=== PATIENT | female | born 1960 | race Caucasian/White ===

== ENCOUNTER 2021-05-12 08:32 | Inpatient (IN) | payer BC ==
[2021-05-12] MEDS ORDERED: Morphine 4 MG/ML VIAL ONE (09:31)
[2021-05-12] MEDS ORDERED: Ondansetron PF 4 MG/2 ML Vial ONE (09:31)
[2021-05-12] MEDS ORDERED: Iopamidol-370 76% 500 ML 1 ML ONE (10:01)
[2021-05-12 10:17] LABS: Hemoglobin 16.6 g/dL (12.0-16.0); Mean Corpuscular HGB CONC 33.8 g/dL (32.0-36.0); Mean Corpuscular Hemoglobin 29.9 pg (27.0-31.0); Mean Corpuscular Volume 88.5 fL (78.0-98.0); Mean Platelet Volume 7.7 fL (7.4-10.4); Platelet Count 370 thou/uL (130-400); RBC Distribution Width 12.6 % (11.5-14.5); Red Blood Cell (RBC) Count 5.55 mill/uL (4.20-5.40); White Blood Cell (WBC) Count 21.9 thou/uL (4.8-10.8)
[2021-05-12 10:26] LABS: ALT (SGPT) 26 U/L (8-55); AST (SGOT) 21 U/L (5-34); Albumin 4.5 g/dL (3.4-4.8); Alkaline Phosphatase 95 U/L (40-110); Anion Gap 13 mmol/L (10-20); BUN (Urea Nitrogen) 17 mg/dL (9.8-20.1); Bilirubin, Total 0.5 mg/dL (0.2-1.2); Calc. Creatinine Clearance 0 mL/min (70-130); Calcium 10.5 mg/dL (7.8-10.44); Carbon Dioxide 31 mmol/L (23-31); Chloride 98 mmol/L (98-107); Globulin 3.7 g/dL (2.4-3.5); Glucose 152 mg/dL (80-115); Lipase 14 U/L (8-78); Potassium 4.1 mmol/L (3.5-5.1); Protein, Total 8.2 g/dL (5.8-8.1); Sodium 138 mmol/L (136-145)
[2021-05-12 10:34] LABS: Lymphocytes 5 % (21-51); MDiff Complete? YES; Monocytes 5 % (0-10); Neutrophil 90 % (42-75); Platelet Morphology Comment Appears Adequate; RBC Morphology Normal
[2021-05-12] MEDS ORDERED: MD-Gastroview 120 ML BOT ONE (10:46)
[2021-05-12] MEDS ORDERED: Ondansetron PF 4 MG/2 ML Vial IVP PRN (12:37)
[2021-05-12] MEDS ORDERED: Dextrose 5% in Water 1,000 ML IV PRN (12:37)
[2021-05-12] MEDS ORDERED: Dextrose 50% Abboject 50 ML SYRINGE SLOW IVP PRN (12:37)
[2021-05-12] MEDS ORDERED: Morphine 4 MG/ML VIAL SLOW IVP PRN (12:37)
[2021-05-12 15:58] VITALS: BMI 29.2
[2021-05-12] MEDS ORDERED: FLU VACC QS2021-22(6MOS UP)/PF 60 MCG/0.5 ML SYRINGE IM ONE (16:30)
[2021-05-12] MEDS: Lactated Ringer's 1,000 ML IV SCH ×2 (17:34)
[2021-05-12] MEDS ORDERED: Enoxaparin Sodium 40 MG/0.4 ML SYRINGE SC SCH (21:00)
[2021-05-13] MEDS: Lactated Ringer's 1,000 ML IV SCH ×2 (02:37→10:44)
[2021-05-13 07:02] LABS: #Lymphocytes 1.8 thou/uL (1.20-3.40); #Monocytes 1.6 thou/uL (0.11-0.59); #Neutrophils 15.7 thou/uL (1.40-6.50); %Basophils 0.1 % (0.0-1.0); %Eosinophils 0.1 % (0.0-10.0); %Lymphocytes 9.2 % (21.0-51.0); %Monocytes 8.1 % (0.0-10.0); %Neutrophils 82.5 % (42.0-75.0); Hemoglobin 13.9 g/dL (12.0-16.0); Mean Corpuscular HGB CONC 32.6 g/dL (32.0-36.0); Mean Corpuscular Hemoglobin 29.2 pg (27.0-31.0); Mean Corpuscular Volume 89.6 fL (78.0-98.0); Mean Platelet Volume 7.7 fL (7.4-10.4); Platelet Count 328 thou/uL (130-400); RBC Distribution Width 12.5 % (11.5-14.5); Red Blood Cell (RBC) Count 4.77 mill/uL (4.20-5.40); White Blood Cell (WBC) Count 19.1 thou/uL (4.8-10.8)
[2021-05-13 07:25] LABS: ALT (SGPT) 83 U/L (8-55); AST (SGOT) 51 U/L (5-34); Albumin 3.5 g/dL (3.4-4.8); Alkaline Phosphatase 72 U/L (40-110); Anion Gap 10 mmol/L (10-20); BUN (Urea Nitrogen) 15 mg/dL (9.8-20.1); Bilirubin, Total 0.5 mg/dL (0.2-1.2); Calc. Creatinine Clearance 80 mL/min (70-130); Calcium 8.7 mg/dL (7.8-10.44); Carbon Dioxide 30 mmol/L (23-31); Chloride 107 mmol/L (98-107); Globulin 2.7 g/dL (2.4-3.5); Glucose 127 mg/dL (80-115); Magnesium 1.9 mg/dL (1.6-2.6); Phosphorus 2.6 mg/dL (2.3-4.7); Potassium 3.5 mmol/L (3.5-5.1); Protein, Total 6.2 g/dL (5.8-8.1); Sodium 143 mmol/L (136-145)
[2021-05-13 07:46] VITALS: TEMP 97.9
[2021-05-13 15:35] VITALS: BP 126/75
== END 2021-05-13 16:06 | DRG 390 ==
LOC: ERS 08:32 → T4-B 12:37
PROVIDERS: ADMIT Surgery; ATTEND Surgery
DX: K56.51 Intestinal adhesions [bands], with partial obstruction (principal); K52.9 Noninfective gastroenteritis and colitis, unspecified; I10 Essential (primary) hypertension; J44.9 Chronic obstructive pulmonary disease, unspecified; M19.90 Unspecified osteoarthritis, unspecified site; F17.210 Nicotine dependence, cigarettes, uncomplicated; G89.29 Other chronic pain; Z88.1 Allergy status to other antibiotic agents; Z88.0 Allergy status to penicillin; Z88.2 Allergy status to sulfonamides; Z90.710 Acquired absence of both cervix and uterus; Z90.49 Acquired absence of other specified parts of digestive tract; Z88.8 Allergy status to other drugs, medicaments and biological substances
CPT/HCPCS: 36415; 74177; 74250; 80053; 83605; 83690; 83735; 83880; 84100; 84484; 85025; 93005; 94640; J1650; J2270; J2405; J7120; J7620; Q9963; Q9967

== ENCOUNTER 2021-05-18 23:08 | Inpatient (IN) | payer BC ==
[2021-05-19] MEDS ORDERED: Dextrose 5% in Water 1,000 ML IV PRN (01:58)
[2021-05-19] MEDS ORDERED: Morphine 4 MG/ML VIAL SLOW IVP PRN ×2 (01:58→02:03)
[2021-05-19] MEDS ORDERED: Dextrose 50% Abboject 50 ML SYRINGE SLOW IVP PRN (01:58)
[2021-05-19] MEDS ORDERED: hydrALAZINE 20 MG/ML VIAL SLOW IVP PRN (01:58)
[2021-05-19 02:01] VITALS: BMI 31.0
[2021-05-19] MEDS: Sodium Chloride 0.9% 1,000 ML IV SCH ×2 (04:03→14:00)
[2021-05-19 06:17] LABS: #Eosinphils 0.2 thou/uL (0.0-0.7); #Lymphocytes 1.9 thou/uL (1.20-3.40); #Neutrophils 6.9 thou/uL (1.40-6.50); %Basophils 0.4 % (0.0-1.0); %Lymphocytes 19.1 % (21.0-51.0); %Neutrophils 68.5 % (42.0-75.0); Hemoglobin 12.9 g/dL (12.0-16.0); Mean Corpuscular HGB CONC 33.5 g/dL (32.0-36.0); Mean Corpuscular Hemoglobin 29.9 pg (27.0-31.0); Mean Corpuscular Volume 89.3 fL (78.0-98.0); Mean Platelet Volume 7.4 fL (7.4-10.4); Platelet Count 303 thou/uL (130-400); RBC Distribution Width 12.3 % (11.5-14.5)
[2021-05-19 06:35] LABS: ALT (SGPT) 77 U/L (8-55); AST (SGOT) 26 U/L (5-34); Albumin 3.4 g/dL (3.4-4.8); Alkaline Phosphatase 67 U/L (40-110); Anion Gap 11 mmol/L (10-20); BUN (Urea Nitrogen) 8 mg/dL (9.8-20.1); Bilirubin, Total 0.3 mg/dL (0.2-1.2); Calc. Creatinine Clearance 85 mL/min (70-130); Calcium 8.2 mg/dL (7.8-10.44); Carbon Dioxide 29 mmol/L (23-31); Chloride 102 mmol/L (98-107); Globulin 2.5 g/dL (2.4-3.5); Glucose 100 mg/dL (80-115); Protein, Total 5.9 g/dL (5.8-8.1); Sodium 139 mmol/L (136-145)
[2021-05-19] MEDS ORDERED: Famotidine/PF 20 mg/2ml Vial SLOW IVP SCH (09:00)
[2021-05-19] MEDS ORDERED: Potassium Chloride 40 MEQ in Sodium Chloride 0.9% 250 ML 250 ML IVPB SCH (09:00)
[2021-05-19 11:12] LABS: SARS-CoV-2 PCR by NAA Not Detected (NotDetected)
[2021-05-19] MEDS ORDERED: DULoxetine 30 MG CAP PO SCH (11:45)
[2021-05-19] MEDS ORDERED: Acetaminophen 500 MG TAB PO PRN (13:06)
[2021-05-20] MEDS: Sodium Chloride 0.9% 1,000 ML IV SCH ×3 (04:06→18:43)
[2021-05-20 07:13] LABS: #Basophils 0.1 thou/uL (0.0-0.2); #Eosinphils 0.2 thou/uL (0.0-0.7); #Lymphocytes 2.4 thou/uL (1.20-3.40); #Monocytes 1.2 thou/uL (0.11-0.59); #Neutrophils 6.2 thou/uL (1.40-6.50); %Basophils 0.8 % (0.0-1.0); %Eosinophils 2.2 % (0.0-10.0); %Lymphocytes 24.1 % (21.0-51.0); %Monocytes 11.4 % (0.0-10.0); %Neutrophils 61.4 % (42.0-75.0); Hemoglobin 12.7 g/dL (12.0-16.0); Mean Corpuscular Volume 88.5 fL (78.0-98.0); Mean Platelet Volume 7.9 fL (7.4-10.4); Platelet Count 289 thou/uL (130-400); RBC Distribution Width 12.1 % (11.5-14.5); Red Blood Cell (RBC) Count 4.11 mill/uL (4.20-5.40)
[2021-05-20 07:29] LABS: Anion Gap 12 mmol/L (10-20); BUN (Urea Nitrogen) 7 mg/dL (9.8-20.1); Calc. Creatinine Clearance 93 mL/min (70-130); Carbon Dioxide 24 mmol/L (23-31); Chloride 107 mmol/L (98-107); Glucose 89 mg/dL (80-115); Magnesium 1.7 mg/dL (1.6-2.6); Potassium 3.2 mmol/L (3.5-5.1); Sodium 140 mmol/L (136-145)
[2021-05-20 07:31] LABS: Phosphorus 1.7 mg/dL (2.3-4.7)
[2021-05-20] MEDS ORDERED: Potassium Phosphate 30 MMOL, Magnesium Sulfate 2 GM in Sodium Chloride 0.9% 250 ML 250 ML IVPB SCH (09:00)
[2021-05-20] MEDS ORDERED: Magnesium Sulfate 2 GM in Sodium Chloride 0.9% 100 ML IVPB SCH (09:00)
[2021-05-20] MEDS: Montelukast Sodium 10 mg Tablet PO SCH (18:42)
[2021-05-20] MEDS: DULoxetine 30 MG CAP PO SCH (18:42)
[2021-05-20] MEDS: Pregabalin 75 MG CAP PO SCH (18:42)
[2021-05-20] MEDS: Ondansetron PF 4 MG/2 ML Vial IVP PRN (23:17)
[2021-05-21 04:52] LABS: #Eosinphils 0.2 thou/uL (0.0-0.7); #Lymphocytes 2.8 thou/uL (1.20-3.40); #Neutrophils 6.7 thou/uL (1.40-6.50); %Basophils 0.3 % (0.0-1.0); %Eosinophils 1.6 % (0.0-10.0); %Lymphocytes 26.1 % (21.0-51.0); %Monocytes 9.4 % (0.0-10.0); %Neutrophils 62.7 % (42.0-75.0); Hemoglobin 12.3 g/dL (12.0-16.0); Mean Corpuscular HGB CONC 34.6 g/dL (32.0-36.0); Mean Corpuscular Hemoglobin 30.2 pg (27.0-31.0); Mean Corpuscular Volume 87.5 fL (78.0-98.0); Mean Platelet Volume 7.8 fL (7.4-10.4); Platelet Count 315 thou/uL (130-400); Red Blood Cell (RBC) Count 4.07 mill/uL (4.20-5.40); White Blood Cell (WBC) Count 10.7 thou/uL (4.8-10.8)
[2021-05-21 05:18] LABS: Anion Gap 7 mmol/L (10-20); BUN (Urea Nitrogen) 4 mg/dL (9.8-20.1); Calc. Creatinine Clearance 100 mL/min (70-130); Carbon Dioxide 30 mmol/L (23-31); Chloride 108 mmol/L (98-107); Glucose 89 mg/dL (80-115); Magnesium 2.2 mg/dL (1.6-2.6); Phosphorus 2.2 mg/dL (2.3-4.7); Potassium 3.1 mmol/L (3.5-5.1); Sodium 142 mmol/L (136-145)
[2021-05-21] MEDS ORDERED: Potassium Phosphate 30 MMOL in Sodium Chloride 0.9% 250 ML 250 ML IVPB SCH (08:45)
[2021-05-21] MEDS: Losartan 25 MG TAB PO SCH (08:52)
[2021-05-21] MEDS: Pregabalin 75 MG CAP PO SCH (08:52)
[2021-05-21] MEDS: Montelukast Sodium 10 mg Tablet PO SCH (08:52)
[2021-05-21] MEDS: DULoxetine 30 MG CAP PO SCH (08:52)
[2021-05-21] MEDS ORDERED: Fentanyl 100 MCG/2 ML VIAL ONE ×2 (12:54→16:37)
[2021-05-21] MEDS ORDERED: HYDROmorphone 2 MG/ML VIAL ONE ×2 (12:54→16:37)
[2021-05-21] MEDS ORDERED: Midazolam HCl 2 mg/2 ml Vial ONE (12:54)
[2021-05-21] MEDS ORDERED: ceFAZolin 2 GM/DEX 5% 100 ML BAG ONE (13:11)
[2021-05-21] MEDS ORDERED: Dexamethasone 20 MG/5 ML VIAL ONE (13:16)
[2021-05-21] MEDS ORDERED: PHENYLEPHRINE-NS 100 MCG/ML 10 ML SYRINGE ONE (13:16)
[2021-05-21] MEDS ORDERED: Glycopyrrolate 0.2 MG/ML 5 ML SYRINGE ONE (13:16)
[2021-05-21] MEDS ORDERED: Ondansetron PF 4 MG/2 ML Vial ONE (13:16)
[2021-05-21] MEDS ORDERED: ePHEDrine 50 MG/ML VIAL ONE (13:16)
[2021-05-21] MEDS ORDERED: Ketorolac Tromethamine 30 MG/ML VIAL ONE (13:16)
[2021-05-21] MEDS ORDERED: Rocuronium Bromide 10 MG/ML (10ML VIAL) ONE (13:16)
[2021-05-21] MEDS ORDERED: Lidocaine 1% PF 5 ML VIAL ONE (13:16)
[2021-05-21] MEDS ORDERED: PROPOFOL 200 MG/20 ML VIAL ONE (13:16)
[2021-05-21] MEDS ORDERED: Promethazine HCl 25 MG/ML VIAL IVPB PRN (15:42)
[2021-05-21] MEDS ORDERED: Promethazine HCl 25 MG/ML VIAL IM PRN ×2 (15:42→16:25)
[2021-05-21] MEDS ORDERED: HYDROmorphone 2 MG/ML VIAL SLOW IVP PRN (15:42)
[2021-05-21] MEDS ORDERED: Ondansetron HCl/PF 4 MG/2 ML Vial IVP PRN (15:42)
[2021-05-21] MEDS ORDERED: Sodium Chloride 0.9% 10 ML ONE (16:11)
[2021-05-21] MEDS ORDERED: Naloxone HCl 0.4 mg/ml Vial IV PRN (16:25)
[2021-05-21] MEDS ORDERED: diphenhydrAMINE 50 MG/ML VIAL IVP PRN (16:25)
[2021-05-21] MEDS ORDERED: diphenhydrAMINE 50 MG/ML VIAL IM PRN (16:25)
[2021-05-21] MEDS ORDERED: diphenhydrAMINE 25 MG CAP PO PRN (16:25)
[2021-05-21] MEDS ORDERED: Communication Order-Pharmacy FS SCH (16:30)
[2021-05-21] MEDS ORDERED: HYDROmorphone 0.5 MG/0.5 ML SYRINGE ONE ×2 (16:38→16:49)
[2021-05-21] MEDS ORDERED: D5 1/2 NS w/20 mEq KCL 1,000 ML ONE (16:38)
[2021-05-21] MEDS ORDERED: Sodium Chloride For Inhalation 0.9% 3 ML NEB ONE (16:48)
[2021-05-21] MEDS: D5 1/2 NS w/20 mEq KCL 1,000 ML IV SCH (18:43)
[2021-05-21] MEDS: Ketorolac Tromethamine 30 MG/ML VIAL IVP SCH ×2 (18:43→23:50)
[2021-05-22] MEDS: D5 1/2 NS w/20 mEq KCL 1,000 ML IV SCH ×2 (02:27→13:38)
[2021-05-22 04:49] LABS: Hemoglobin 14.4 g/dL (12.0-16.0); Mean Corpuscular HGB CONC 32.9 g/dL (32.0-36.0); Mean Corpuscular Hemoglobin 29.3 pg (27.0-31.0); Mean Corpuscular Volume 89.1 fL (78.0-98.0); Mean Platelet Volume 7.9 fL (7.4-10.4); Platelet Count 346 thou/uL (130-400); RBC Distribution Width 12.4 % (11.5-14.5); Red Blood Cell (RBC) Count 4.92 mill/uL (4.20-5.40)
[2021-05-22] MEDS: Ketorolac Tromethamine 30 MG/ML VIAL IVP SCH ×3 (05:34→18:10)
[2021-05-22 06:06] LABS: Anion Gap 15 mmol/L (10-20); BUN (Urea Nitrogen) 10 mg/dL (9.8-20.1); Calc. Creatinine Clearance 54 mL/min (70-130); Calcium 7.5 mg/dL (7.8-10.44); Carbon Dioxide 21 mmol/L (23-31); Chloride 107 mmol/L (98-107); Glucose 205 mg/dL (80-115); Magnesium 1.8 mg/dL (1.6-2.6); Phosphorus 2.9 mg/dL (2.3-4.7); Sodium 139 mmol/L (136-145)
[2021-05-22 06:19] LABS: Band 47 % (5-11); Lymphocytes 6 % (21-51); MDiff Complete? YES; Metamyelocyte 2 % (0-0); Monocytes 8 % (0-10); Neutrophil 35 % (42-75); Reactive Lymphocytes 2 % (0-10); Reflex for Review?? YES
[2021-05-22] MEDS ORDERED: Magnesium Sulfate 3 GM in Sodium Chloride 0.9% 100 ML IV SCH (08:00)
[2021-05-22] MEDS: Enoxaparin Sodium 40 MG/0.4 ML SYRINGE SC SCH (09:41)
[2021-05-22] MEDS: Pregabalin 75 MG CAP PO SCH (09:42)
[2021-05-22] MEDS: Montelukast Sodium 10 mg Tablet PO SCH (09:42)
[2021-05-22] MEDS: DULoxetine 30 MG CAP PO SCH (09:42)
[2021-05-22] MEDS: Losartan 25 MG TAB PO SCH (09:42)
[2021-05-22] MEDS ORDERED: Lactated Ringer's 1,000 ML IV SCH (12:00)
[2021-05-22] MEDS: HYDROmorphone 10 mg/100 ml CADD IVPB PRN (14:28)
[2021-05-22 19:10] LABS: Anion Gap 16 mmol/L (10-20); BUN (Urea Nitrogen) 15 mg/dL (9.8-20.1); Calc. Creatinine Clearance 61 mL/min (70-130); Calcium 7.8 mg/dL (7.8-10.44); Carbon Dioxide 17 mmol/L (23-31); Chloride 110 mmol/L (98-107); Glucose 134 mg/dL (80-115); Potassium 4.7 mmol/L (3.5-5.1); Sodium 138 mmol/L (136-145)
[2021-05-23] MEDS: HYDROmorphone 10 mg/100 ml CADD IVPB PRN (02:12)
[2021-05-23] MEDS: D5 1/2 NS w/20 mEq KCL 1,000 ML IV SCH ×3 (02:12→18:18)
[2021-05-23 05:31] LABS: Anion Gap 10 mmol/L (10-20); BUN (Urea Nitrogen) 17 mg/dL (9.8-20.1); Calc. Creatinine Clearance 57 mL/min (70-130); Calcium 8.1 mg/dL (7.8-10.44); Carbon Dioxide 21 mmol/L (23-31); Chloride 109 mmol/L (98-107); Glucose 139 mg/dL (80-115); Magnesium 2.6 mg/dL (1.6-2.6); Phosphorus 1.3 mg/dL (2.3-4.7); Potassium 4.2 mmol/L (3.5-5.1); Sodium 136 mmol/L (136-145)
[2021-05-23 06:57] LABS: Band 33 % (5-11); Hemoglobin 12.4 g/dL (12.0-16.0); Lymphocytes 5 % (21-51); MDiff Complete? YES; Mean Corpuscular HGB CONC 32.8 g/dL (32.0-36.0); Mean Corpuscular Hemoglobin 29.3 pg (27.0-31.0); Mean Corpuscular Volume 89.2 fL (78.0-98.0); Mean Platelet Volume 7.9 fL (7.4-10.4); Monocytes 3 % (0-10); Neutrophil 59 % (42-75); Platelet Count 342 thou/uL (130-400); RBC Distribution Width 12.3 % (11.5-14.5); Red Blood Cell (RBC) Count 4.25 mill/uL (4.20-5.40); White Blood Cell (WBC) Count 24.5 thou/uL (4.8-10.8)
[2021-05-23] MEDS: Montelukast Sodium 10 mg Tablet PO SCH (08:46)
[2021-05-23] MEDS: DULoxetine 30 MG CAP PO SCH (08:46)
[2021-05-23] MEDS: Enoxaparin Sodium 40 MG/0.4 ML SYRINGE SC SCH (08:46)
[2021-05-23] MEDS: Pregabalin 75 MG CAP PO SCH (08:54)
[2021-05-23] MEDS: Pantoprazole 40 MG VIAL IVP SCH (10:53)
[2021-05-23] MEDS: Ondansetron PF 4 MG/2 ML Vial IVP PRN (10:57)
[2021-05-23] MEDS ORDERED: Lactated Ringer's 500 ML IV SCH (11:30)
[2021-05-24] MEDS: D5 1/2 NS w/20 mEq KCL 1,000 ML IV SCH ×2 (04:30→14:38)
[2021-05-24] MEDS: Ondansetron PF 4 MG/2 ML Vial IVP PRN ×2 (06:40→15:52)
[2021-05-24 07:45] LABS: Anion Gap 9 mmol/L (10-20); BUN (Urea Nitrogen) 15 mg/dL (9.8-20.1); Calc. Creatinine Clearance 76 mL/min (70-130); Calcium 7.7 mg/dL (7.8-10.44); Carbon Dioxide 22 mmol/L (23-31); Chloride 108 mmol/L (98-107); Glucose 97 mg/dL (80-115); Magnesium 2.2 mg/dL (1.6-2.6); Phosphorus 2.2 mg/dL (2.3-4.7); Potassium 4.4 mmol/L (3.5-5.1); Sodium 135 mmol/L (136-145)
[2021-05-24 08:42] LABS: Hemoglobin 12.7 g/dL (12.0-16.0); Mean Corpuscular HGB CONC 31.2 g/dL (32.0-36.0); Mean Corpuscular Hemoglobin 28.7 pg (27.0-31.0); Mean Platelet Volume 8.3 fL (7.4-10.4); Platelet Count 239 thou/uL (130-400); RBC Distribution Width 12.3 % (11.5-14.5); Red Blood Cell (RBC) Count 4.41 mill/uL (4.20-5.40); White Blood Cell (WBC) Count 21.4 thou/uL (4.8-10.8)
[2021-05-24] MEDS: Pregabalin 75 MG CAP PO SCH (09:08)
[2021-05-24] MEDS: DULoxetine 30 MG CAP PO SCH (09:08)
[2021-05-24] MEDS: Montelukast Sodium 10 mg Tablet PO SCH (09:08)
[2021-05-24 09:13] LABS: Band 15 % (5-11); Lymphocytes 8 % (21-51); MDiff Complete? YES; Monocytes 4 % (0-10); Neutrophil 73 % (42-75); Platelet Morphology Comment Appears Adequate; Polychromasia SLIGHT = 2-3 cells (100X) (0-2/hpf)
[2021-05-24] MEDS: Pantoprazole 40 MG VIAL IVP SCH (09:17)
[2021-05-24] MEDS: Enoxaparin Sodium 40 MG/0.4 ML SYRINGE SC SCH (09:17)
[2021-05-24] MEDS: HYDROmorphone 10 mg/100 ml CADD IVPB PRN (11:51)
[2021-05-24] MEDS ORDERED: Scopolamine 1.5 mg/72 hour Patch TD SCH (12:00)
[2021-05-24] MEDS ORDERED: traMADol HCl 50 MG TAB PO PRN (16:41)
[2021-05-24] MEDS ORDERED: Furosemide 20 MG/2 ML VIAL SLOW IVP SCH (17:15)
[2021-05-24] MEDS ORDERED: Acetaminophen 650 MG/20.3 ML UDCUP PO SCH (17:30)
[2021-05-24] MEDS: traMADol HCl 50 MG TAB PO SCH ×2 (17:44→22:58)
[2021-05-25] MEDS: traMADol HCl 50 MG TAB PO SCH ×4 (05:05→23:14)
[2021-05-25 05:32] LABS: Hemoglobin 10.6 g/dL (12.0-16.0); Mean Corpuscular HGB CONC 32.8 g/dL (32.0-36.0); Mean Corpuscular Hemoglobin 29.5 pg (27.0-31.0); Mean Corpuscular Volume 90.1 fL (78.0-98.0); Mean Platelet Volume 7.6 fL (7.4-10.4); Platelet Count 334 thou/uL (130-400); RBC Distribution Width 12.1 % (11.5-14.5); Red Blood Cell (RBC) Count 3.58 mill/uL (4.20-5.40)
[2021-05-25 05:36] LABS: Anion Gap 11 mmol/L (10-20); BUN (Urea Nitrogen) 14 mg/dL (9.8-20.1); Calc. Creatinine Clearance 78 mL/min (70-130); Calcium 8.1 mg/dL (7.8-10.44); Carbon Dioxide 25 mmol/L (23-31); Chloride 105 mmol/L (98-107); Glucose 100 mg/dL (80-115); Magnesium 1.9 mg/dL (1.6-2.6); Phosphorus 2.7 mg/dL (2.3-4.7); Sodium 137 mmol/L (136-145)
[2021-05-25 06:17] LABS: Band 16 % (5-11); Eosinophils 2 % (0-10); Lymphocytes 8 % (21-51); MDiff Complete? YES; Monocytes 10 % (0-10); Neutrophil 62 % (42-75)
[2021-05-25] MEDS: Enoxaparin Sodium 40 MG/0.4 ML SYRINGE SC SCH (08:30)
[2021-05-25] MEDS: DULoxetine 30 MG CAP PO SCH (08:30)
[2021-05-25] MEDS: Pregabalin 75 MG CAP PO SCH (08:30)
[2021-05-25] MEDS: Montelukast Sodium 10 mg Tablet PO SCH (08:30)
[2021-05-25] MEDS ORDERED: Morphine 4 MG/ML VIAL ONE (11:16)
[2021-05-25] MEDS ORDERED: Morphine 4 MG/ML VIAL SLOW IVP SCH (11:30)
[2021-05-25] MEDS: Pantoprazole 40 MG VIAL IVP SCH (11:59)
[2021-05-25] MEDS: Ondansetron PF 4 MG/2 ML Vial IVP PRN (13:43)
[2021-05-25] MEDS: metroNIDAZOLE 500 MG TAB PO SCH ×2 (17:31→21:45)
[2021-05-26] MEDS: traMADol HCl 50 MG TAB PO SCH (05:40)
[2021-05-26 06:19] LABS: Hemoglobin 10.8 g/dL (12.0-16.0); Mean Corpuscular HGB CONC 32.7 g/dL (32.0-36.0); Mean Corpuscular Hemoglobin 29.4 pg (27.0-31.0); Mean Corpuscular Volume 89.9 fL (78.0-98.0); Mean Platelet Volume 7.8 fL (7.4-10.4); Platelet Count 370 thou/uL (130-400); RBC Distribution Width 12.3 % (11.5-14.5); Red Blood Cell (RBC) Count 3.66 mill/uL (4.20-5.40); White Blood Cell (WBC) Count 15.7 thou/uL (4.8-10.8)
[2021-05-26 07:04] LABS: Band 10 % (5-11); Eosinophils 1 % (0-10); Lymphocytes 8 % (21-51); MDiff Complete? YES; Monocytes 7 % (0-10); Myelocyte 1 % (0-0); Neutrophil 73 % (42-75)
[2021-05-26] MEDS ORDERED: Losartan 25 MG TAB PO SCH (09:00)
[2021-05-26] MEDS ORDERED: Saccharomyces boulardii 250 MG CAP PO SCH (09:00)
[2021-05-26] MEDS: DULoxetine 30 MG CAP PO SCH (09:03)
[2021-05-26] MEDS: Pregabalin 75 MG CAP PO SCH (09:03)
[2021-05-26] MEDS: metroNIDAZOLE 500 MG TAB PO SCH (09:03)
[2021-05-26] MEDS: Enoxaparin Sodium 40 MG/0.4 ML SYRINGE SC SCH (09:04)
[2021-05-26] MEDS: Montelukast Sodium 10 mg Tablet PO SCH (09:04)
[2021-05-26] MEDS: Pantoprazole 40 MG VIAL IVP SCH (09:31)
[2021-05-26 10:55] VITALS: BP 156/87; TEMP 97.7
[2021-05-26] MEDS ORDERED: [UNRECOGNIZED DRUG - OTHER] PO PRN (11:06)
[2021-05-26] MEDS ORDERED: Acetaminophen/Codeine 30-300mg Tablet PO PRN (11:08)
[2021-05-26] MEDS ORDERED: ACETAMINOPHEN 325 MG PO PRN (11:15)
== END 2021-05-26 14:30 | disposition home or self-care (01) | DRG 330 ==
LOC: SURG B 05-19 01:33
PROVIDERS: ADMIT Surgery; ATTEND Surgery
PROC: 0DBB0ZZ Excision of Ileum, Open Approach (ICD-10-PCS; principal; 2021-05-21)
PROC: 0DNW0ZZ Release Peritoneum, Open Approach (ICD-10-PCS; 2021-05-21)
PROC: 0D1B0ZH Bypass Ileum to Cecum, Open Approach (ICD-10-PCS; 2021-05-21)
PROC: 0D9670Z Drainage of Stomach with Drainage Device, Via Natural or Artificial Opening (ICD-10-PCS; 2021-05-21)
DX: K56.51 Intestinal adhesions [bands], with partial obstruction (principal); N18.4 Chronic kidney disease, stage 4 (severe); N17.9 Acute kidney failure, unspecified; Z20.822 Contact with and (suspected) exposure to COVID-19; M06.9 Rheumatoid arthritis, unspecified; E87.6 Hypokalemia; F17.210 Nicotine dependence, cigarettes, uncomplicated; I12.9 Hypertensive chronic kidney disease with stage 1 through stage 4 chronic kidney disease, or unspecified chronic kidney disease; E83.39 Other disorders of phosphorus metabolism; K59.00 Constipation, unspecified; D72.829 Elevated white blood cell count, unspecified; Z90.49 Acquired absence of other specified parts of digestive tract; Z90.710 Acquired absence of both cervix and uterus; Z98.890 Other specified postprocedural states; Z88.0 Allergy status to penicillin; Z88.2 Allergy status to sulfonamides; Z88.8 Allergy status to other drugs, medicaments and biological substances; Z79.899 Other long term (current) drug therapy
CPT/HCPCS: 36415; 36416; 71045; 74018; 74019; 74250; 80048; 80053; 83690; 83735; 84100; 85007; 85025; 85027; 85060; 88307; C1776; C9113; J1100; J1170; J1650; J1885; J1940; J2250; J2270; J2405; J2550; J2704; J3010; J3475; J3480; J3490; J7030; J7050; J7120; J7620; P9045; S0028; U0003; U0005

== ENCOUNTER 2021-05-30 14:13 | Inpatient (IN) | payer BC ==
[~2021-05-30 14:13] MED LIST: Iopamidol-370 76% 500 ML 1 ML ONE
[2021-05-30] MEDS ORDERED: Morphine 4 MG/ML VIAL ONE (16:40)
[2021-05-30] MEDS ORDERED: Ondansetron PF 4 MG/2 ML Vial ONE (16:49)
[2021-05-30] MEDS ORDERED: Promethazine HCl 25 MG/ML VIAL ONE (16:59)
[2021-05-30 17:14] LABS: #Eosinphils 0.1 thou/uL (0.0-0.7); #Lymphocytes 1.3 thou/uL (1.20-3.40); #Monocytes 1.6 thou/uL (0.11-0.59); #Neutrophils 12.9 thou/uL (1.40-6.50); %Basophils 0.2 % (0.0-1.0); %Eosinophils 0.6 % (0.0-10.0); %Lymphocytes 8.4 % (21.0-51.0); %Monocytes 9.9 % (0.0-10.0); %Neutrophils 80.9 % (42.0-75.0); Hemoglobin 11.4 g/dL (12.0-16.0); Mean Corpuscular HGB CONC 33.6 g/dL (32.0-36.0); Mean Corpuscular Hemoglobin 29.7 pg (27.0-31.0); Mean Corpuscular Volume 88.2 fL (78.0-98.0); Mean Platelet Volume 7.1 fL (7.4-10.4); Platelet Count 555 thou/uL (130-400); RBC Distribution Width 12.4 % (11.5-14.5); Red Blood Cell (RBC) Count 3.85 mill/uL (4.20-5.40)
[2021-05-30 17:36] LABS: ALT (SGPT) 12 U/L (8-55); AST (SGOT) 15 U/L (5-34); Albumin 2.7 g/dL (3.4-4.8); Alkaline Phosphatase 71 U/L (40-110); Anion Gap 11 mmol/L (10-20); BUN (Urea Nitrogen) 7 mg/dL (9.8-20.1); Bilirubin, Total 0.3 mg/dL (0.2-1.2); CK (CPK) 20 U/L (29-168); Calc. Creatinine Clearance 0 mL/min (70-130); Calcium 8.4 mg/dL (7.8-10.44); Carbon Dioxide 32 mmol/L (23-31); Chloride 100 mmol/L (98-107); Globulin 3.1 g/dL (2.4-3.5); Glucose 105 mg/dL (80-115); Lipase 7 U/L (8-78); Protein, Total 5.8 g/dL (5.8-8.1); Sodium 140 mmol/L (136-145)
[2021-05-30 17:48] LABS: Potassium 2.9 mmol/L (3.5-5.1)
[2021-05-30] MEDS ORDERED: Vancomycin 1 GM/200 ML BAG ONE (18:03)
[2021-05-30 18:11] LABS: Bilirubin Negative (Negative); Blood, Urine Negative (Negative); Clarity Clear (Clear); Glucose, Urine (Dipstick) Normal (Negative); Ketone, Urine Negative (Negative); Leukocyte Negative Leu/uL (Negative); Nitrite Negative (Negative); Protein, Urine (Dipstick) Negative (Neg-Trace); Specific Gravity, Urine 1.014 (1.002-1.036); Urobilinogen Normal mg/dL (Less than 2); pH, Urine 6.5 (5.0-9.0)
[2021-05-30] MEDS ORDERED: MEROPENEM 1 GM/50 ML 1 GM in Premix Bag 1 BAG IVPB SCH (18:15)
[2021-05-30] MEDS ORDERED: Dextrose 5% in Water 1,000 ML IV PRN (18:57)
[2021-05-30] MEDS ORDERED: Morphine 4 MG/ML VIAL SLOW IVP PRN (18:57)
[2021-05-30] MEDS ORDERED: Ondansetron PF 4 MG/2 ML Vial IVP PRN (18:57)
[2021-05-30] MEDS ORDERED: Dextrose 50% Abboject 50 ML SYRINGE SLOW IVP PRN (18:57)
[2021-05-30] MEDS ORDERED: Meropenem 1 GM in Sodium Chloride 0.9% 100 ML IVPB SCH ×2 (19:00→22:00)
[2021-05-30] MEDS ORDERED: Sodium Chloride 0.9% 1,000 ML IV SCH (19:30)
[2021-05-30 20:09] LABS: Anion Gap 12 mmol/L (10-20); BUN (Urea Nitrogen) 5 mg/dL (9.8-20.1); Calc. Creatinine Clearance 0 mL/min (70-130); Calcium 8.1 mg/dL (7.8-10.44); Carbon Dioxide 31 mmol/L (23-31); Chloride 103 mmol/L (98-107); Glucose 120 mg/dL (80-115); Sodium 143 mmol/L (136-145)
[2021-05-30 20:17] LABS: Potassium 2.9 mmol/L (3.5-5.1)
[2021-05-30] MEDS ORDERED: Famotidine/PF 20 mg/2ml Vial SLOW IVP SCH (21:00)
[2021-05-30] MEDS ORDERED: fentaNYL Citrate/PF 2,000 MCG in Sodium Chloride 0.9% 60 ML IV PRN (21:28)
[2021-05-30] MEDS ORDERED: Naloxone HCl 0.4 mg/ml Vial IV PRN (21:28)
[2021-05-30] MEDS ORDERED: diphenhydrAMINE 50 MG/ML VIAL IM PRN (21:28)
[2021-05-30] MEDS ORDERED: Promethazine HCl 25 MG/ML VIAL IM PRN (21:28)
[2021-05-30] MEDS ORDERED: diphenhydrAMINE 25 MG CAP PO PRN (21:28)
[2021-05-30] MEDS ORDERED: diphenhydrAMINE 50 MG/ML VIAL IVP PRN (21:28)
[2021-05-30] MEDS ORDERED: Communication Order-Pharmacy FS SCH (21:30)
[2021-05-30] MEDS ORDERED: Potassium Phosphate 30 MMOL in Sodium Chloride 0.9% 250 ML 250 ML IVPB SCH (21:30)
[2021-05-30 22:27] VITALS: BMI 30.9
[2021-05-31] MEDS: 1/2 NS w/KCL 20 mEq 1,000 ML IV SCH ×3 (02:11→07:55)
[2021-05-31] MEDS: Meropenem 1 GM in Sodium Chloride 0.9% 100 ML IVPB SCH ×3 (03:58→20:48)
[2021-05-31] MEDS ORDERED: 1/2 NS w/KCL 20 mEq 1,000 ML IV SCH (07:42)
[2021-05-31] MEDS: Vancomycin HCl 750 MG in Sodium Chloride 0.9% 250 ML 250 ML IVPB SCH ×2 (07:58→17:18)
[2021-05-31] MEDS: Pregabalin 75 MG CAP PO SCH (08:23)
[2021-05-31] MEDS: Losartan 25 MG TAB PO SCH (08:24)
[2021-05-31] MEDS: Scopolamine 1.5 mg/72 hour Patch TD SCH (08:25)
[2021-05-31] MEDS: Enoxaparin Sodium 40 MG/0.4 ML SYRINGE SC SCH (08:25)
[2021-05-31] MEDS: Potassium Chloride 20 MEQ in Premix Bag 1 BAG IVPB SCH ×2 (08:26→09:33)
[2021-05-31 08:38] LABS: Hemoglobin 11.3 g/dL (12.0-16.0); Mean Corpuscular HGB CONC 33.1 g/dL (32.0-36.0); Mean Corpuscular Hemoglobin 29.4 pg (27.0-31.0); Mean Platelet Volume 7.2 fL (7.4-10.4); Platelet Count 549 thou/uL (130-400); RBC Distribution Width 12.5 % (11.5-14.5); Red Blood Cell (RBC) Count 3.84 mill/uL (4.20-5.40); White Blood Cell (WBC) Count 15.9 thou/uL (4.8-10.8)
[2021-05-31 08:54] LABS: Anion Gap 16 mmol/L (10-20); BUN (Urea Nitrogen) 6 mg/dL (9.8-20.1); Calc. Creatinine Clearance 91 mL/min (70-130); Calcium 8.2 mg/dL (7.8-10.44); Carbon Dioxide 28 mmol/L (23-31); Chloride 105 mmol/L (98-107); Glucose 98 mg/dL (80-115); Lactic Acid 1.1 mmol/L (0.5-2.2); Magnesium 2.1 mg/dL (1.6-2.6); Potassium 3.7 mmol/L (3.5-5.1); Sodium 145 mmol/L (136-145)
[2021-05-31 08:58] LABS: Anion Gap 16 mmol/L (10-20); BUN (Urea Nitrogen) 6 mg/dL (9.8-20.1); Calc. Creatinine Clearance 94 mL/min (70-130); Calcium 8.2 mg/dL (7.8-10.44); Carbon Dioxide 27 mmol/L (23-31); Chloride 105 mmol/L (98-107); Glucose 98 mg/dL (80-115); Magnesium 2.1 mg/dL (1.6-2.6); Phosphorus 3.2 mg/dL (2.3-4.7); Potassium 3.5 mmol/L (3.5-5.1); Sodium 144 mmol/L (136-145)
[2021-05-31 09:12] LABS: Phosphorus 3.2 mg/dL (2.3-4.7)
[2021-05-31 09:18] LABS: Band 9 % (5-11); Eosinophils 1 % (0-10); Lymphocytes 7 % (21-51); MDiff Complete? YES; Monocytes 7 % (0-10); Myelocyte 2 % (0-0); Neutrophil 74 % (42-75); Platelet Morphology Comment Appears Increased
[2021-05-31] MEDS ORDERED: Heparin 1,000 UNITS/ML VIAL ONE (11:26)
[2021-05-31 11:44] LABS: SARS-CoV-2 PCR by NAA Not Detected (NotDetected)
[2021-05-31] MEDS ORDERED: Multivitamins, Adult 10 ML, TRACE ELEMENT CONCENTRATE 1 ML in D15W-AA 5% with Lytes 2,0... IV SCH (14:00)
[2021-05-31 14:53] LABS: Anion Gap 15 mmol/L (10-20); BUN (Urea Nitrogen) 7 mg/dL (9.8-20.1); Calc. Creatinine Clearance 98 mL/min (70-130); Carbon Dioxide 26 mmol/L (23-31); Chloride 106 mmol/L (98-107); Glucose 88 mg/dL (80-115); Magnesium 2.2 mg/dL (1.6-2.6); Phosphorus 2.4 mg/dL (2.3-4.7); Potassium 3.4 mmol/L (3.5-5.1); Sodium 144 mmol/L (136-145)
[2021-05-31] MEDS: Fat Emulsion 250 ML IVPB SCH (14:58)
[2021-05-31] MEDS ORDERED: Potassium Chloride 30 MEQ in Sodium Chloride 0.9% 250 ML 250 ML IVPB SCH (16:30)
[2021-06-01] MEDS: Meropenem 1 GM in Sodium Chloride 0.9% 100 ML IVPB SCH ×4 (04:21→17:59)
[2021-06-01] MEDS: Vancomycin HCl 750 MG in Sodium Chloride 0.9% 250 ML 250 ML IVPB SCH (05:54)
[2021-06-01 06:36] LABS: Vancomycin, Trough 9.2 ug/mL
[2021-06-01] MEDS ORDERED: Vancomycin HCl 500 MG in Sodium Chloride 0.9% 100 ML IVPB SCH (07:30)
[2021-06-01] MEDS: Enoxaparin Sodium 40 MG/0.4 ML SYRINGE SC SCH (08:43)
[2021-06-01] MEDS: Pregabalin 75 MG CAP PO SCH (08:45)
[2021-06-01] MEDS: Losartan 25 MG TAB PO SCH (08:57)
[2021-06-01] MEDS: Saccharomyces boulardii 250 MG CAP PO SCH ×2 (10:27→20:14)
[2021-06-01] MEDS ORDERED: Potassium Chloride 20 MEQ in Premix Bag 1 BAG IVPB SCH (12:00)
[2021-06-01] MEDS: Potassium Chloride 20 MEQ in Premix Bag 1 BAG IVPB SCH ×2 (13:38→16:17)
[2021-06-01] MEDS ORDERED: Multivitamins, Adult 10 ML, TRACE ELEMENT CONCENTRATE 1 ML in D15W-AA 5% with Lytes 2,0... IV SCH (14:00)
[2021-06-01] MEDS ORDERED: Acetaminophen 325 MG TAB PO PRN (17:19)
[2021-06-01] MEDS ORDERED: Vancomycin HCl 1.25 GM in Sodium Chloride 0.9% 250 ML 250 ML IVPB SCH (18:00)
[2021-06-01] MEDS: Morphine 4 MG/ML VIAL SLOW IVP PRN (20:14)
[2021-06-01] MEDS: Ondansetron PF 4 MG/2 ML Vial IVP PRN (20:14)
[2021-06-02] MEDS: Meropenem 1 GM in Sodium Chloride 0.9% 100 ML IVPB SCH ×3 (01:05→18:42)
[2021-06-02] MEDS: Morphine 4 MG/ML VIAL SLOW IVP PRN ×4 (02:22→23:48)
[2021-06-02] MEDS: Ondansetron PF 4 MG/2 ML Vial IVP PRN ×4 (02:22→23:42)
[2021-06-02 06:57] LABS: Hemoglobin 10.8 g/dL (12.0-16.0); Mean Corpuscular HGB CONC 32.3 g/dL (32.0-36.0); Mean Corpuscular Hemoglobin 28.8 pg (27.0-31.0); Mean Corpuscular Volume 89.3 fL (78.0-98.0); Mean Platelet Volume 6.9 fL (7.4-10.4); Platelet Count 480 thou/uL (130-400); RBC Distribution Width 12.8 % (11.5-14.5); Red Blood Cell (RBC) Count 3.75 mill/uL (4.20-5.40); White Blood Cell (WBC) Count 11.5 thou/uL (4.8-10.8)
[2021-06-02 07:16] LABS: Phosphorus 2.7 mg/dL (2.3-4.7)
[2021-06-02 07:17] LABS: Anion Gap 10 mmol/L (10-20); BUN (Urea Nitrogen) 15 mg/dL (9.8-20.1); Calc. Creatinine Clearance 105 mL/min (70-130); Calcium 7.8 mg/dL (7.8-10.44); Carbon Dioxide 32 mmol/L (23-31); Chloride 103 mmol/L (98-107); Glucose 135 mg/dL (80-115); Magnesium 2.1 mg/dL (1.6-2.6); Potassium 3.5 mmol/L (3.5-5.1); Sodium 141 mmol/L (136-145)
[2021-06-02 08:54] LABS: Band 21 % (5-11); Eosinophils 5 % (0-10); Lymphocytes 15 % (21-51); MDiff Complete? YES; Monocytes 12 % (0-10); Neutrophil 47 % (42-75); Platelet Morphology Comment Appears Increased; RBC Morphology Normal
[2021-06-02] MEDS ORDERED: FLU VACC QS2021-22(6MOS UP)/PF 60 MCG/0.5 ML SYRINGE IM ONE (09:00)
[2021-06-02] MEDS: Losartan 25 MG TAB PO SCH (09:19)
[2021-06-02] MEDS: Saccharomyces boulardii 250 MG CAP PO SCH ×2 (09:20→21:09)
[2021-06-02] MEDS: Enoxaparin Sodium 40 MG/0.4 ML SYRINGE SC SCH (09:20)
[2021-06-02] MEDS: Pregabalin 75 MG CAP PO SCH (09:22)
[2021-06-02] MEDS ORDERED: Acetaminophen/Codeine 30-300mg Tablet PO PRN (09:27)
[2021-06-02] MEDS: Ketorolac Tromethamine 30 MG/ML VIAL IVP PRN ×2 (10:44→16:30)
[2021-06-02] MEDS: Acetaminophen 325 MG TAB PO SCH ×3 (10:44→21:10)
[2021-06-02] MEDS: Fat Emulsion 250 ML IVPB SCH (14:39)
[2021-06-02] MEDS: Multivitamins, Adult 10 ML, TRACE ELEMENT CONCENTRATE 1 ML in CLINIMIX E 5/20 2,000 ML IV SCH (14:40)
[2021-06-03] MEDS: Meropenem 1 GM in Sodium Chloride 0.9% 100 ML IVPB SCH ×3 (01:45→17:47)
[2021-06-03] MEDS: Ondansetron PF 4 MG/2 ML Vial IVP PRN ×4 (03:43→20:46)
[2021-06-03] MEDS: Morphine 4 MG/ML VIAL SLOW IVP PRN ×4 (03:44→20:48)
[2021-06-03] MEDS: Acetaminophen 325 MG TAB PO SCH ×4 (03:49→21:28)
[2021-06-03 05:41] LABS: Band 20 % (5-11); Eosinophils 1 % (0-10); Hemoglobin 10.1 g/dL (12.0-16.0); Hypochromia SLIGHT = 6-15 cells (100X) (0-5/hpf); Lymphocytes 10 % (21-51); MDiff Complete? YES; Mean Corpuscular Hemoglobin 29.6 pg (27.0-31.0); Mean Corpuscular Volume 89.8 fL (78.0-98.0); Mean Platelet Volume 6.9 fL (7.4-10.4); Monocytes 5 % (0-10); Neutrophil 64 % (42-75); Platelet Count 454 thou/uL (130-400); Platelet Morphology Comment Appears Increased; RBC Distribution Width 12.7 % (11.5-14.5); White Blood Cell (WBC) Count 11.4 thou/uL (4.8-10.8)
[2021-06-03 05:48] LABS: Anion Gap 8 mmol/L (10-20); BUN (Urea Nitrogen) 17 mg/dL (9.8-20.1); Calc. Creatinine Clearance 100 mL/min (70-130); Calcium 7.8 mg/dL (7.8-10.44); Carbon Dioxide 32 mmol/L (23-31); Chloride 103 mmol/L (98-107); Glucose 137 mg/dL (80-115); Sodium 139 mmol/L (136-145)
[2021-06-03] MEDS: Enoxaparin Sodium 40 MG/0.4 ML SYRINGE SC SCH (08:40)
[2021-06-03] MEDS: Losartan 25 MG TAB PO SCH (10:48)
[2021-06-03] MEDS ORDERED: hydrALAZINE 20 MG/ML VIAL SLOW IVP PRN (10:51)
[2021-06-03] MEDS: Pregabalin 75 MG CAP PO SCH (10:51)
[2021-06-03] MEDS: Saccharomyces boulardii 250 MG CAP PO SCH ×2 (10:52→21:25)
[2021-06-03] MEDS: Scopolamine 1.5 mg/72 hour Patch TD SCH (10:58)
[2021-06-03] MEDS ORDERED: Pantoprazole 40 MG VIAL IVP SCH (11:45)
[2021-06-03] MEDS: Multivitamins, Adult 10 ML, TRACE ELEMENT CONCENTRATE 1 ML in CLINIMIX E 5/20 2,000 ML IV SCH (15:23)
[2021-06-03] MEDS ORDERED: Chloraseptic Spray 180 ml Bottle PO PRN (16:44)
[2021-06-04] MEDS: Ondansetron PF 4 MG/2 ML Vial IVP PRN ×5 (00:41→23:52)
[2021-06-04] MEDS: Meropenem 1 GM in Sodium Chloride 0.9% 100 ML IVPB SCH ×3 (00:42→21:03)
[2021-06-04] MEDS: Morphine 4 MG/ML VIAL SLOW IVP PRN ×5 (00:46→23:54)
[2021-06-04] MEDS: Acetaminophen 325 MG TAB PO SCH ×4 (02:55→21:10)
[2021-06-04 05:18] LABS: Hemoglobin 9.8 g/dL (12.0-16.0); Mean Corpuscular HGB CONC 32.7 g/dL (32.0-36.0); Mean Corpuscular Hemoglobin 29.5 pg (27.0-31.0); Mean Corpuscular Volume 90.1 fL (78.0-98.0); Mean Platelet Volume 7.2 fL (7.4-10.4); Platelet Count 421 thou/uL (130-400); RBC Distribution Width 12.6 % (11.5-14.5); Red Blood Cell (RBC) Count 3.32 mill/uL (4.20-5.40); White Blood Cell (WBC) Count 12.7 thou/uL (4.8-10.8)
[2021-06-04 05:29] LABS: Anion Gap 9 mmol/L (10-20); BUN (Urea Nitrogen) 13 mg/dL (9.8-20.1); Calc. Creatinine Clearance 105 mL/min (70-130); Calcium 8.1 mg/dL (7.8-10.44); Carbon Dioxide 31 mmol/L (23-31); Chloride 103 mmol/L (98-107); Glucose 131 mg/dL (80-115); Magnesium 2.4 mg/dL (1.6-2.6); Phosphorus 2.4 mg/dL (2.3-4.7); Sodium 139 mmol/L (136-145)
[2021-06-04 05:49] LABS: Band 16 % (5-11); Eosinophils 5 % (0-10); Lymphocytes 15 % (21-51); MDiff Complete? YES; Monocytes 10 % (0-10); Neutrophil 54 % (42-75)
[2021-06-04 07:42] LABS: Prothrombin Time 13.5 sec (12.0-14.7)
[2021-06-04 07:43] LABS: PTT 36.9 sec (22.9-36.1)
[2021-06-04] MEDS ORDERED: Fentanyl 100 MCG/2 ML VIAL ONE (08:03)
[2021-06-04] MEDS ORDERED: Sodium Bicarbonate 2.5 MEQ/5 ML VIAL ONE (08:04)
[2021-06-04] MEDS ORDERED: Midazolam HCl 2 mg/2 ml Vial ONE (08:04)
[2021-06-04] MEDS ORDERED: Sodium Chloride 0.9% 10 ML ONE (08:04)
[2021-06-04] MEDS ORDERED: Sodium Phosphate 30 MMOL in Sodium Chloride 0.9% 250 ML 250 ML IVPB SCH (09:00)
[2021-06-04] MEDS: Enoxaparin Sodium 40 MG/0.4 ML SYRINGE SC SCH (10:45)
[2021-06-04] MEDS: Pantoprazole 40 MG VIAL IVP SCH (10:46)
[2021-06-04] MEDS: Saccharomyces boulardii 250 MG CAP PO SCH ×2 (13:24→21:10)
[2021-06-04] MEDS: Losartan 25 MG TAB PO SCH (13:24)
[2021-06-04] MEDS: Pregabalin 75 MG CAP PO SCH (13:24)
[2021-06-04] MEDS: Multivitamins, Adult 10 ML, TRACE ELEMENT CONCENTRATE 1 ML in D15W-AA 5% with Lytes 2,0... IV SCH (17:10)
[2021-06-04] MEDS: Fat Emulsion 250 ML IVPB SCH (17:10)
[2021-06-05] MEDS: Acetaminophen 325 MG TAB PO SCH ×4 (02:34→20:20)
[2021-06-05] MEDS: Ondansetron PF 4 MG/2 ML Vial IVP PRN ×4 (03:48→17:46)
[2021-06-05] MEDS: Morphine 4 MG/ML VIAL SLOW IVP PRN ×5 (03:49→21:43)
[2021-06-05] MEDS: Meropenem 1 GM in Sodium Chloride 0.9% 100 ML IVPB SCH ×3 (05:02→20:21)
[2021-06-05 05:42] LABS: #Eosinphils 0.2 thou/uL (0.0-0.7); #Lymphocytes 1.8 thou/uL (1.20-3.40); #Monocytes 1.5 thou/uL (0.11-0.59); #Neutrophils 9.2 thou/uL (1.40-6.50); %Basophils 0.3 % (0.0-1.0); %Eosinophils 1.7 % (0.0-10.0); %Lymphocytes 14.2 % (21.0-51.0); %Monocytes 12.1 % (0.0-10.0); %Neutrophils 71.7 % (42.0-75.0); Mean Corpuscular HGB CONC 32.9 g/dL (32.0-36.0); Mean Corpuscular Hemoglobin 28.9 pg (27.0-31.0); Mean Corpuscular Volume 87.7 fL (78.0-98.0); Platelet Count 440 thou/uL (130-400); RBC Distribution Width 12.4 % (11.5-14.5); Red Blood Cell (RBC) Count 3.45 mill/uL (4.20-5.40); White Blood Cell (WBC) Count 12.8 thou/uL (4.8-10.8)
[2021-06-05 06:00] LABS: Anion Gap 10 mmol/L (10-20); BUN (Urea Nitrogen) 11 mg/dL (9.8-20.1); Calc. Creatinine Clearance 110 mL/min (70-130); Calcium 8.4 mg/dL (7.8-10.44); Carbon Dioxide 30 mmol/L (23-31); Chloride 104 mmol/L (98-107); Glucose 96 mg/dL (80-115); Magnesium 2.3 mg/dL (1.6-2.6); Phosphorus 2.8 mg/dL (2.3-4.7); Potassium 4.2 mmol/L (3.5-5.1); Sodium 140 mmol/L (136-145)
[2021-06-05] MEDS: Losartan 25 MG TAB PO SCH (07:20)
[2021-06-05] MEDS: Pregabalin 75 MG CAP PO SCH (07:20)
[2021-06-05] MEDS: Saccharomyces boulardii 250 MG CAP PO SCH ×2 (07:21→20:20)
[2021-06-05] MEDS: Enoxaparin Sodium 40 MG/0.4 ML SYRINGE SC SCH (08:54)
[2021-06-05] MEDS: Pantoprazole 40 MG VIAL IVP SCH (08:54)
[2021-06-05] MEDS: Multivitamins, Adult 10 ML, TRACE ELEMENT CONCENTRATE 1 ML in D15W-AA 5% with Lytes 2,0... IV SCH (15:29)
[2021-06-06] MEDS: Morphine 4 MG/ML VIAL SLOW IVP PRN ×7 (03:41→22:41)
[2021-06-06] MEDS: Ondansetron PF 4 MG/2 ML Vial IVP PRN ×4 (03:42→20:32)
[2021-06-06] MEDS: Acetaminophen 325 MG TAB PO SCH ×2 (03:46→09:40)
[2021-06-06] MEDS: Meropenem 1 GM in Sodium Chloride 0.9% 100 ML IVPB SCH ×3 (05:05→20:32)
[2021-06-06] MEDS ORDERED: Acetaminophen/Codeine 30-300mg Tablet PO PRN (09:01)
[2021-06-06] MEDS: Enoxaparin Sodium 40 MG/0.4 ML SYRINGE SC SCH (09:37)
[2021-06-06] MEDS: Pantoprazole 40 MG VIAL IVP SCH (09:37)
[2021-06-06] MEDS: Saccharomyces boulardii 250 MG CAP PO SCH ×2 (09:40→20:17)
[2021-06-06] MEDS: Pregabalin 75 MG CAP PO SCH (09:40)
[2021-06-06] MEDS: Losartan 25 MG TAB PO SCH (09:40)
[2021-06-06] MEDS: Scopolamine 1.5 mg/72 hour Patch TD SCH (11:09)
[2021-06-06] MEDS: Multivitamins, Adult 10 ML, TRACE ELEMENT CONCENTRATE 1 ML in D15W-AA 5% with Lytes 2,0... IV SCH (15:06)
[2021-06-07] MEDS: Morphine 4 MG/ML VIAL SLOW IVP PRN ×10 (00:32→22:58)
[2021-06-07] MEDS: Ondansetron PF 4 MG/2 ML Vial IVP PRN ×5 (00:33→22:57)
[2021-06-07] MEDS: Meropenem 1 GM in Sodium Chloride 0.9% 100 ML IVPB SCH ×3 (05:55→22:57)
[2021-06-07 06:44] LABS: Hemoglobin 9.9 g/dL (12.0-16.0); Mean Corpuscular HGB CONC 31.6 g/dL (32.0-36.0); Mean Corpuscular Hemoglobin 27.9 pg (27.0-31.0); Mean Corpuscular Volume 88.3 fL (78.0-98.0); Mean Platelet Volume 7.7 fL (7.4-10.4); Platelet Count 429 thou/uL (130-400); RBC Distribution Width 12.6 % (11.5-14.5); Red Blood Cell (RBC) Count 3.57 mill/uL (4.20-5.40); White Blood Cell (WBC) Count 11.8 thou/uL (4.8-10.8)
[2021-06-07 06:49] LABS: Anion Gap 11 mmol/L (10-20); BUN (Urea Nitrogen) 17 mg/dL (9.8-20.1); Calc. Creatinine Clearance 97 mL/min (70-130); Calcium 8.3 mg/dL (7.8-10.44); Carbon Dioxide 27 mmol/L (23-31); Chloride 103 mmol/L (98-107); Glucose 91 mg/dL (80-115); Magnesium 2.4 mg/dL (1.6-2.6); Phosphorus 2.9 mg/dL (2.3-4.7); Potassium 4.3 mmol/L (3.5-5.1); Sodium 137 mmol/L (136-145)
[2021-06-07] MEDS: Pantoprazole 40 MG VIAL IVP SCH (08:57)
[2021-06-07] MEDS: Montelukast Sodium 10 mg Tablet PO SCH (09:00)
[2021-06-07] MEDS: Losartan 25 MG TAB PO SCH (09:00)
[2021-06-07] MEDS: Saccharomyces boulardii 250 MG CAP PO SCH ×2 (09:00→20:25)
[2021-06-07] MEDS: Enoxaparin Sodium 40 MG/0.4 ML SYRINGE SC SCH (09:00)
[2021-06-07] MEDS: Pregabalin 75 MG CAP PO SCH (09:01)
[2021-06-07 10:49] LABS: Band 11 % (5-11); Eosinophils 4 % (0-10); Lymphocytes 16 % (21-51); MDiff Complete? YES; Monocytes 8 % (0-10); Myelocyte 1 % (0-0); Neutrophil 59 % (42-75); Platelet Morphology Comment Appears Increased; Polychromasia SLIGHT = 2-3 cells (100X) (0-2/hpf)
[2021-06-07] MEDS: Multivitamins, Adult 10 ML, TRACE ELEMENT CONCENTRATE 1 ML in D15W-AA 5% with Lytes 2,0... IV SCH (15:54)
[2021-06-07] MEDS: Fat Emulsion 250 ML IVPB SCH (15:54)
[2021-06-08] MEDS: Morphine 4 MG/ML VIAL SLOW IVP PRN ×7 (01:06→22:30)
[2021-06-08] MEDS: Meropenem 1 GM in Sodium Chloride 0.9% 100 ML IVPB SCH ×3 (04:52→21:09)
[2021-06-08] MEDS: Ondansetron PF 4 MG/2 ML Vial IVP PRN ×4 (04:52→19:31)
[2021-06-08 06:14] LABS: #Basophils 0.1 thou/uL (0.0-0.2); #Eosinphils 0.3 thou/uL (0.0-0.7); #Lymphocytes 1.8 thou/uL (1.20-3.40); #Monocytes 1.6 thou/uL (0.11-0.59); #Neutrophils 7.5 thou/uL (1.40-6.50); %Basophils 0.6 % (0.0-1.0); %Eosinophils 2.8 % (0.0-10.0); %Lymphocytes 15.9 % (21.0-51.0); %Monocytes 14.3 % (0.0-10.0); %Neutrophils 66.4 % (42.0-75.0); Hemoglobin 9.9 g/dL (12.0-16.0); Mean Corpuscular HGB CONC 32.2 g/dL (32.0-36.0); Mean Corpuscular Hemoglobin 28.8 pg (27.0-31.0); Mean Corpuscular Volume 89.3 fL (78.0-98.0); Mean Platelet Volume 7.6 fL (7.4-10.4); Platelet Count 410 thou/uL (130-400); RBC Distribution Width 12.7 % (11.5-14.5); Red Blood Cell (RBC) Count 3.43 mill/uL (4.20-5.40); White Blood Cell (WBC) Count 11.3 thou/uL (4.8-10.8)
[2021-06-08 06:36] LABS: Anion Gap 11 mmol/L (10-20); BUN (Urea Nitrogen) 15 mg/dL (9.8-20.1); Calc. Creatinine Clearance 114 mL/min (70-130); Calcium 8.5 mg/dL (7.8-10.44); Carbon Dioxide 26 mmol/L (23-31); Chloride 104 mmol/L (98-107); Glucose 123 mg/dL (80-115); Magnesium 2.5 mg/dL (1.6-2.6); Phosphorus 2.7 mg/dL (2.3-4.7); Potassium 4.3 mmol/L (3.5-5.1); Sodium 137 mmol/L (136-145)
[2021-06-08] MEDS ORDERED: SODIUM PHOSPHATE 30 MMOL in Sodium Chloride 0.9% 250 ML 250 ML IVPB SCH (08:30)
[2021-06-08] MEDS: Losartan 25 MG TAB PO SCH (09:54)
[2021-06-08] MEDS: Montelukast Sodium 10 mg Tablet PO SCH (09:54)
[2021-06-08] MEDS: Saccharomyces boulardii 250 MG CAP PO SCH ×2 (09:54→19:32)
[2021-06-08] MEDS: Pantoprazole 40 MG VIAL IVP SCH (09:54)
[2021-06-08] MEDS: Enoxaparin Sodium 40 MG/0.4 ML SYRINGE SC SCH (09:54)
[2021-06-08 11:02] LABS: SARS-CoV-2 PCR by NAA Not Detected (NotDetected)
[2021-06-08] MEDS: Pregabalin 75 MG CAP PO SCH (11:10)
[2021-06-08] MEDS: Multivitamins, Adult 10 ML, TRACE ELEMENT CONCENTRATE 1 ML in D15W-AA 5% with Lytes 2,0... IV SCH (14:39)
[2021-06-09] MEDS: Morphine 4 MG/ML VIAL SLOW IVP PRN ×7 (01:52→20:36)
[2021-06-09] MEDS: Ondansetron PF 4 MG/2 ML Vial IVP PRN ×4 (01:52→20:36)
[2021-06-09] MEDS: Meropenem 1 GM in Sodium Chloride 0.9% 100 ML IVPB SCH ×3 (06:09→22:05)
[2021-06-09] MEDS: Scopolamine 1.5 mg/72 hour Patch TD SCH (08:21)
[2021-06-09] MEDS: Enoxaparin Sodium 40 MG/0.4 ML SYRINGE SC SCH (08:23)
[2021-06-09] MEDS: Saccharomyces boulardii 250 MG CAP PO SCH ×2 (08:23→20:35)
[2021-06-09] MEDS: Montelukast Sodium 10 mg Tablet PO SCH (08:23)
[2021-06-09] MEDS: Pantoprazole 40 MG VIAL IVP SCH (08:23)
[2021-06-09] MEDS: Losartan 25 MG TAB PO SCH (08:23)
[2021-06-09] MEDS: Pregabalin 75 MG CAP PO SCH (08:25)
[2021-06-09] MEDS: Sodium Chloride 0.9% 1,000 ML IV SCH (12:22)
[2021-06-09] MEDS: Fat Emulsion 250 ML IVPB SCH (14:38)
[2021-06-09] MEDS: Multivitamins, Adult 10 ML, TRACE ELEMENT CONCENTRATE 1 ML in D15W-AA 5% with Lytes 2,0... IV SCH (14:39)
[2021-06-10] MEDS: Morphine 4 MG/ML VIAL SLOW IVP PRN ×6 (01:45→15:11)
[2021-06-10] MEDS: Ondansetron PF 4 MG/2 ML Vial IVP PRN (01:46)
[2021-06-10] MEDS: Meropenem 1 GM in Sodium Chloride 0.9% 100 ML IVPB SCH ×3 (05:19→22:08)
[2021-06-10] MEDS: Sodium Chloride 0.9% 1,000 ML IV SCH ×2 (05:20→20:15)
[2021-06-10] MEDS: Enoxaparin Sodium 40 MG/0.4 ML SYRINGE SC SCH (07:52)
[2021-06-10] MEDS: Montelukast Sodium 10 mg Tablet PO SCH (07:53)
[2021-06-10] MEDS: Pregabalin 75 MG CAP PO SCH (07:53)
[2021-06-10] MEDS: Saccharomyces boulardii 250 MG CAP PO SCH ×2 (07:53→20:14)
[2021-06-10] MEDS: Losartan 25 MG TAB PO SCH (07:54)
[2021-06-10] MEDS: Pantoprazole 40 MG VIAL IVP SCH (07:54)
[2021-06-10] MEDS: Multivitamins, Adult 10 ML, TRACE ELEMENT CONCENTRATE 1 ML in D15W-AA 5% with Lytes 2,0... IV SCH (14:28)
[2021-06-10] MEDS: Acetaminophen 325 MG TAB PO PRN ×2 (17:34→23:36)
[2021-06-11] MEDS: Ondansetron PF 4 MG/2 ML Vial IVP PRN ×2 (01:08→14:45)
[2021-06-11] MEDS: Meropenem 1 GM in Sodium Chloride 0.9% 100 ML IVPB SCH ×3 (06:12→20:07)
[2021-06-11] MEDS: Morphine 4 MG/ML VIAL SLOW IVP PRN ×2 (09:20→20:06)
[2021-06-11] MEDS: Pantoprazole 40 MG VIAL IVP SCH (09:20)
[2021-06-11] MEDS: Saccharomyces boulardii 250 MG CAP PO SCH ×2 (09:20→20:08)
[2021-06-11] MEDS: Montelukast Sodium 10 mg Tablet PO SCH ×2 (09:20→09:55)
[2021-06-11] MEDS: Pregabalin 75 MG CAP PO SCH (09:21)
[2021-06-11] MEDS: Enoxaparin Sodium 40 MG/0.4 ML SYRINGE SC SCH (09:21)
[2021-06-11] MEDS: Losartan 25 MG TAB PO SCH ×2 (09:23→09:55)
[2021-06-11] MEDS: Fat Emulsion 250 ML IVPB SCH (14:44)
[2021-06-11] MEDS: Multivitamins, Adult 10 ML, TRACE ELEMENT CONCENTRATE 1 ML in D15W-AA 5% with Lytes 2,0... IV SCH (14:45)
[2021-06-11] MEDS: Sodium Chloride 0.9% 1,000 ML IV SCH (23:20)
[2021-06-12] MEDS: Acetaminophen 325 MG TAB PO PRN ×2 (02:23→21:20)
[2021-06-12] MEDS: Meropenem 1 GM in Sodium Chloride 0.9% 100 ML IVPB SCH ×4 (03:35→21:21)
[2021-06-12] MEDS: Morphine 4 MG/ML VIAL SLOW IVP PRN ×3 (03:35→18:23)
[2021-06-12] MEDS: Pregabalin 75 MG CAP PO SCH (09:37)
[2021-06-12] MEDS: Enoxaparin Sodium 40 MG/0.4 ML SYRINGE SC SCH (09:47)
[2021-06-12] MEDS: Montelukast Sodium 10 mg Tablet PO SCH (09:47)
[2021-06-12] MEDS: Losartan 25 MG TAB PO SCH (09:47)
[2021-06-12] MEDS: Scopolamine 1.5 mg/72 hour Patch TD SCH (09:47)
[2021-06-12] MEDS: Saccharomyces boulardii 250 MG CAP PO SCH ×2 (09:47→21:19)
[2021-06-12] MEDS: Pantoprazole 40 MG VIAL IVP SCH (09:47)
[2021-06-12] MEDS ORDERED: traMADol HCl 50 MG TAB PO PRN (10:01)
[2021-06-12] MEDS: Multivitamins, Adult 10 ML, TRACE ELEMENT CONCENTRATE 1 ML in D15W-AA 5% with Lytes 2,0... IV SCH (14:03)
[2021-06-12] MEDS: Sodium Chloride 0.9% 1,000 ML IV SCH (16:35)
[2021-06-13] MEDS: Acetaminophen 325 MG TAB PO PRN (04:48)
[2021-06-13] MEDS: Meropenem 1 GM in Sodium Chloride 0.9% 100 ML IVPB SCH ×3 (04:49→21:11)
[2021-06-13] MEDS: Morphine 4 MG/ML VIAL SLOW IVP PRN ×3 (07:50→21:12)
[2021-06-13] MEDS: Ondansetron PF 4 MG/2 ML Vial IVP PRN ×3 (07:52→21:11)
[2021-06-13] MEDS: Chlorhexidine Gluconate 15 ML UDCUP SSP SCH ×2 (09:23→21:11)
[2021-06-13] MEDS: Pantoprazole 40 MG VIAL IVP SCH (09:24)
[2021-06-13] MEDS: Enoxaparin Sodium 40 MG/0.4 ML SYRINGE SC SCH (09:24)
[2021-06-13] MEDS: Saccharomyces boulardii 250 MG CAP PO SCH ×2 (09:25→21:11)
[2021-06-13] MEDS: Montelukast Sodium 10 mg Tablet PO SCH (09:25)
[2021-06-13] MEDS: Losartan 25 MG TAB PO SCH (09:25)
[2021-06-13] MEDS: Pregabalin 75 MG CAP PO SCH ×3 (09:26→13:00)
[2021-06-13] MEDS: Sodium Chloride 0.9% 1,000 ML IV SCH (09:37)
[2021-06-13] MEDS ORDERED: Meclizine HCl 12.5 MG TAB PO PRN (10:36)
[2021-06-13] MEDS: Multivitamins, Adult 10 ML, TRACE ELEMENT CONCENTRATE 1 ML in D15W-AA 5% with Lytes 2,0... IV SCH (15:16)
[2021-06-14] MEDS: Meropenem 1 GM in Sodium Chloride 0.9% 100 ML IVPB SCH ×3 (05:50→21:45)
[2021-06-14] MEDS: Montelukast Sodium 10 mg Tablet PO SCH ×2 (07:39→07:40)
[2021-06-14] MEDS: Saccharomyces boulardii 250 MG CAP PO SCH ×2 (07:39→21:45)
[2021-06-14] MEDS: Pantoprazole 40 MG VIAL IVP SCH (07:39)
[2021-06-14] MEDS: Pregabalin 75 MG CAP PO SCH (07:39)
[2021-06-14] MEDS: Enoxaparin Sodium 40 MG/0.4 ML SYRINGE SC SCH (07:40)
[2021-06-14] MEDS: Chlorhexidine Gluconate 15 ML UDCUP SSP SCH ×3 (07:40→21:46)
[2021-06-14] MEDS: Morphine 4 MG/ML VIAL SLOW IVP PRN ×5 (07:41→21:51)
[2021-06-14] MEDS: Losartan 25 MG TAB PO SCH (07:49)
[2021-06-14 09:55] LABS: #Basophils 0.1 thou/uL (0.0-0.2); #Eosinphils 0.2 thou/uL (0.0-0.7); #Lymphocytes 1.7 thou/uL (1.20-3.40); #Monocytes 1.4 thou/uL (0.11-0.59); #Neutrophils 8.3 thou/uL (1.40-6.50); %Basophils 0.5 % (0.0-1.0); %Eosinophils 1.9 % (0.0-10.0); %Lymphocytes 14.5 % (21.0-51.0); %Monocytes 11.9 % (0.0-10.0); %Neutrophils 71.2 % (42.0-75.0); Hemoglobin 9.4 g/dL (12.0-16.0); Mean Corpuscular HGB CONC 31.8 g/dL (32.0-36.0); Mean Corpuscular Hemoglobin 27.6 pg (27.0-31.0); Mean Corpuscular Volume 86.7 fL (78.0-98.0); Mean Platelet Volume 7.9 fL (7.4-10.4); Platelet Count 335 thou/uL (130-400); RBC Distribution Width 12.9 % (11.5-14.5); Red Blood Cell (RBC) Count 3.41 mill/uL (4.20-5.40); White Blood Cell (WBC) Count 11.6 thou/uL (4.8-10.8)
[2021-06-14 10:18] LABS: Anion Gap 10 mmol/L (10-20); BUN (Urea Nitrogen) 15 mg/dL (9.8-20.1); Calc. Creatinine Clearance 110 mL/min (70-130); Calcium 8.2 mg/dL (7.8-10.44); Carbon Dioxide 23 mmol/L (23-31); Cardiac Risk 4.3 (Less than 4.5); Chloride 107 mmol/L (98-107); Cholesterol 82 mg/dl (< 200 Desired); Glucose 137 mg/dL (80-115); HDL Cholesterol 19 mg/dL (>60 Neg Risk); LDL Cholesterol, Calculated 38 mg/dL; Magnesium 2.1 mg/dL (1.6-2.6); Phosphorus 2.2 mg/dL (2.3-4.7); Sodium 136 mmol/L (136-145); Triglycerides 124 mg/dL (Less than 150)
[2021-06-14] MEDS ORDERED: Potassium Phosphate 30 MMOL in Sodium Chloride 0.9% 500 ML IVPB SCH (10:30)
[2021-06-14] MEDS: Sodium Chloride 0.9% 1,000 ML IV SCH ×2 (10:43→15:56)
[2021-06-14] MEDS: Ondansetron PF 4 MG/2 ML Vial IVP PRN ×2 (11:08→21:51)
[2021-06-14] MEDS: Fat Emulsion 250 ML IVPB SCH (15:47)
[2021-06-14] MEDS: Multivitamins, Adult 10 ML, TRACE ELEMENT CONCENTRATE 1 ML in D15W-AA 5% with Lytes 2,0... IV SCH (15:47)
[2021-06-15] MEDS: Morphine 4 MG/ML VIAL SLOW IVP PRN ×3 (00:58→08:51)
[2021-06-15] MEDS: Ondansetron PF 4 MG/2 ML Vial IVP PRN ×2 (06:15→18:31)
[2021-06-15] MEDS: Meropenem 1 GM in Sodium Chloride 0.9% 100 ML IVPB SCH (06:20)
[2021-06-15] MEDS: Scopolamine 1.5 mg/72 hour Patch TD SCH (08:52)
[2021-06-15] MEDS: Pantoprazole 40 MG VIAL IVP SCH (08:52)
[2021-06-15] MEDS: Enoxaparin Sodium 40 MG/0.4 ML SYRINGE SC SCH (08:53)
[2021-06-15] MEDS: Chlorhexidine Gluconate 15 ML UDCUP SSP SCH ×2 (08:54→20:50)
[2021-06-15] MEDS ORDERED: traMADol HCl 50 MG TAB PO PRN (09:38)
[2021-06-15] MEDS ORDERED: HYDROcodone/Acetaminophen 5/325 mg Tablet PO PRN (10:38)
[2021-06-15] MEDS: Saccharomyces boulardii 250 MG CAP PO SCH ×2 (10:43→20:50)
[2021-06-15] MEDS: metroNIDAZOLE 500 MG TAB PO SCH ×3 (10:43→20:50)
[2021-06-15] MEDS: Losartan 25 MG TAB PO SCH (10:43)
[2021-06-15] MEDS: Cefdinir 300 MG CAP PO SCH ×2 (10:43→20:50)
[2021-06-15] MEDS: Montelukast Sodium 10 mg Tablet PO SCH (10:43)
[2021-06-15] MEDS: Multivitamins, Adult 10 ML, TRACE ELEMENT CONCENTRATE 1 ML in D15W-AA 5% with Lytes 2,0... IV SCH (15:23)
[2021-06-16] MEDS: Ondansetron PF 4 MG/2 ML Vial IVP PRN ×2 (00:20→05:18)
[2021-06-16] MEDS: Sodium Chloride 0.9% 1,000 ML IV SCH ×2 (05:17→20:42)
[2021-06-16] MEDS: Cefdinir 300 MG CAP PO SCH ×2 (05:33→12:14)
[2021-06-16] MEDS ORDERED: Fleets Phospha Soda 45 ml Bottle PO PRN (07:43)
[2021-06-16] MEDS: Promethazine HCl 25 MG in Sodium Chloride 0.9% 50 ML IVPB PRN ×2 (10:08→18:46)
[2021-06-16] MEDS ORDERED: MEROPENEM 1 GM/50 ML 1 GM in Premix Bag 1 BAG IVPB SCH (10:45)
[2021-06-16] MEDS: Chlorhexidine Gluconate 15 ML UDCUP SSP SCH ×2 (11:35→20:42)
[2021-06-16] MEDS: Montelukast Sodium 10 mg Tablet PO SCH (11:38)
[2021-06-16] MEDS: Enoxaparin Sodium 40 MG/0.4 ML SYRINGE SC SCH (11:38)
[2021-06-16] MEDS: Pantoprazole 40 MG VIAL IVP SCH (11:38)
[2021-06-16] MEDS: Losartan 25 MG TAB PO SCH (11:38)
[2021-06-16] MEDS: Morphine 4 MG/ML VIAL SLOW IVP PRN (11:41)
[2021-06-16] MEDS ORDERED: Meropenem 1 GM in Sodium Chloride 0.9% 100 ML IVPB SCH (11:45)
[2021-06-16] MEDS: Pregabalin 75 MG CAP PO SCH (11:52)
[2021-06-16] MEDS: Saccharomyces boulardii 250 MG CAP PO SCH ×2 (11:52→20:43)
[2021-06-16] MEDS: metroNIDAZOLE 500 MG TAB PO SCH (12:14)
[2021-06-16] MEDS: Multivitamins, Adult 10 ML, TRACE ELEMENT CONCENTRATE 1 ML in D15W-AA 5% with Lytes 2,0... IV SCH (14:33)
[2021-06-16] MEDS: Fat Emulsion 250 ML IVPB SCH (14:33)
[2021-06-16 16:23] LABS: SARS-CoV-2 PCR by NAA Not Detected (NotDetected)
[2021-06-16] MEDS: HYDROcodone/Acetaminophen 5/325 mg Tablet PO PRN ×2 (18:17→20:43)
[2021-06-16] MEDS: Meropenem 1 GM in Sodium Chloride 0.9% 100 ML IVPB SCH (20:43)
[2021-06-16] MEDS: Melatonin 3 MG TAB PO PRN (21:42)
[2021-06-17] MEDS: Meropenem 1 GM in Sodium Chloride 0.9% 100 ML IVPB SCH ×3 (04:16→20:23)
[2021-06-17 06:32] LABS: #Eosinphils 0.3 thou/uL (0.0-0.7); #Lymphocytes 1.3 thou/uL (1.20-3.40); #Neutrophils 4.5 thou/uL (1.40-6.50); %Basophils 0.3 % (0.0-1.0); %Eosinophils 4.3 % (0.0-10.0); %Lymphocytes 18.7 % (21.0-51.0); %Monocytes 13.9 % (0.0-10.0); %Neutrophils 62.9 % (42.0-75.0); Hemoglobin 9.5 g/dL (12.0-16.0); Mean Corpuscular HGB CONC 33.7 g/dL (32.0-36.0); Mean Corpuscular Hemoglobin 29.2 pg (27.0-31.0); Mean Corpuscular Volume 86.5 fL (78.0-98.0); Mean Platelet Volume 7.9 fL (7.4-10.4); Platelet Count 360 thou/uL (130-400); Red Blood Cell (RBC) Count 3.25 mill/uL (4.20-5.40); White Blood Cell (WBC) Count 7.2 thou/uL (4.8-10.8)
[2021-06-17 06:53] LABS: Anion Gap 11 mmol/L (10-20); BUN (Urea Nitrogen) 14 mg/dL (9.8-20.1); Calc. Creatinine Clearance 110 mL/min (70-130); Calcium 8.3 mg/dL (7.8-10.44); Carbon Dioxide 26 mmol/L (23-31); Chloride 108 mmol/L (98-107); Glucose 123 mg/dL (80-115); Magnesium 2.2 mg/dL (1.6-2.6); Phosphorus 2.5 mg/dL (2.3-4.7); Potassium 3.8 mmol/L (3.5-5.1); Sodium 141 mmol/L (136-145)
[2021-06-17] MEDS: Pantoprazole 40 MG VIAL IVP SCH (08:45)
[2021-06-17] MEDS: Enoxaparin Sodium 40 MG/0.4 ML SYRINGE SC SCH (08:45)
[2021-06-17] MEDS: Montelukast Sodium 10 mg Tablet PO SCH (08:46)
[2021-06-17] MEDS: Losartan 25 MG TAB PO SCH (08:46)
[2021-06-17] MEDS: Saccharomyces boulardii 250 MG CAP PO SCH ×2 (08:47→20:23)
[2021-06-17] MEDS: Pregabalin 75 MG CAP PO SCH (08:56)
[2021-06-17] MEDS: Chlorhexidine Gluconate 15 ML UDCUP SSP SCH ×2 (08:56→20:23)
[2021-06-17] MEDS: Promethazine HCl 25 MG in Sodium Chloride 0.9% 50 ML IVPB PRN (10:52)
[2021-06-17] MEDS: HYDROcodone/Acetaminophen 5/325 mg Tablet PO PRN ×3 (11:42→23:29)
[2021-06-17] MEDS: Morphine 4 MG/ML VIAL SLOW IVP PRN (11:51)
[2021-06-17] MEDS: Multivitamins, Adult 10 ML, TRACE ELEMENT CONCENTRATE 1 ML in D15W-AA 5% with Lytes 2,0... IV SCH (14:40)
[2021-06-17] MEDS: Sodium Chloride 0.9% 1,000 ML IV SCH (14:41)
[2021-06-18] MEDS: Meropenem 1 GM in Sodium Chloride 0.9% 100 ML IVPB SCH ×3 (04:51→20:34)
[2021-06-18] MEDS: [UNRECOGNIZED DRUG - REMARK] FS SCH (06:02)
[2021-06-18] MEDS: Scopolamine 1.5 mg/72 hour Patch TD SCH (08:34)
[2021-06-18] MEDS: Ondansetron PF 4 MG/2 ML Vial IVP PRN (08:34)
[2021-06-18] MEDS: Enoxaparin Sodium 40 MG/0.4 ML SYRINGE SC SCH (08:35)
[2021-06-18] MEDS: Chlorhexidine Gluconate 15 ML UDCUP SSP SCH ×2 (08:35→20:37)
[2021-06-18] MEDS: Pantoprazole 40 MG VIAL IVP SCH (08:35)
[2021-06-18] MEDS: Promethazine HCl 25 MG in Sodium Chloride 0.9% 50 ML IVPB PRN ×2 (10:25→20:59)
[2021-06-18] MEDS: Pregabalin 75 MG CAP PO SCH (11:21)
[2021-06-18] MEDS: Montelukast Sodium 10 mg Tablet PO SCH (12:09)
[2021-06-18] MEDS: Saccharomyces boulardii 250 MG CAP PO SCH ×2 (12:09→20:33)
[2021-06-18] MEDS: HYDROcodone/Acetaminophen 5/325 mg Tablet PO PRN ×2 (12:09→20:40)
[2021-06-18] MEDS: Losartan 25 MG TAB PO SCH (12:09)
[2021-06-18] MEDS: Sodium Chloride 0.9% 1,000 ML IV SCH (14:42)
[2021-06-18] MEDS: Fat Emulsion 250 ML IVPB SCH (15:01)
[2021-06-18] MEDS: Multivitamins, Adult 10 ML, TRACE ELEMENT CONCENTRATE 1 ML in D15W-AA 5% with Lytes 2,0... IV SCH (15:02)
[2021-06-18] MEDS ORDERED: HYDROcodone/Acetaminophen 5/325 mg Tablet ONE (20:36)
[2021-06-18] MEDS: Melatonin 3 MG TAB PO PRN (23:11)
[2021-06-19] MEDS: Sodium Chloride 0.9% 1,000 ML IV SCH (03:37)
[2021-06-19] MEDS: Meropenem 1 GM in Sodium Chloride 0.9% 100 ML IVPB SCH ×3 (03:37→20:39)
[2021-06-19] MEDS: [UNRECOGNIZED DRUG - REMARK] FS SCH (05:52)
[2021-06-19] MEDS: Pantoprazole 40 MG VIAL IVP SCH (08:46)
[2021-06-19] MEDS: Montelukast Sodium 10 mg Tablet PO SCH (08:46)
[2021-06-19] MEDS: Enoxaparin Sodium 40 MG/0.4 ML SYRINGE SC SCH (08:46)
[2021-06-19] MEDS: Pregabalin 75 MG CAP PO SCH (08:46)
[2021-06-19] MEDS: Losartan 25 MG TAB PO SCH (08:47)
[2021-06-19] MEDS: Chlorhexidine Gluconate 15 ML UDCUP SSP SCH ×2 (08:56→20:33)
[2021-06-19] MEDS: Morphine 4 MG/ML VIAL SLOW IVP PRN (11:47)
[2021-06-19] MEDS: Saccharomyces boulardii 250 MG CAP PO SCH ×2 (11:53→20:39)
[2021-06-19] MEDS: Multivitamins, Adult 10 ML, TRACE ELEMENT CONCENTRATE 1 ML in D15W-AA 5% with Lytes 2,0... IV SCH (14:53)
[2021-06-19] MEDS: Promethazine HCl 25 MG in Sodium Chloride 0.9% 50 ML IVPB PRN (19:31)
[2021-06-19] MEDS: HYDROcodone/Acetaminophen 5/325 mg Tablet PO PRN (19:32)
[2021-06-19] MEDS: Melatonin 3 MG TAB PO PRN (20:39)
[2021-06-20] MEDS: Meropenem 1 GM in Sodium Chloride 0.9% 100 ML IVPB SCH ×3 (04:03→20:06)
[2021-06-20] MEDS: [UNRECOGNIZED DRUG - REMARK] FS SCH (06:05)
[2021-06-20] MEDS: Sodium Chloride 0.9% 1,000 ML IV SCH ×2 (06:49→16:37)
[2021-06-20] MEDS: Promethazine HCl 25 MG in Sodium Chloride 0.9% 50 ML IVPB PRN ×2 (07:14→20:32)
[2021-06-20] MEDS: Montelukast Sodium 10 mg Tablet PO SCH (08:58)
[2021-06-20] MEDS: Pregabalin 75 MG CAP PO SCH (08:59)
[2021-06-20] MEDS: Saccharomyces boulardii 250 MG CAP PO SCH ×2 (08:59→20:06)
[2021-06-20] MEDS: Pantoprazole 40 MG VIAL IVP SCH (08:59)
[2021-06-20] MEDS: Losartan 25 MG TAB PO SCH (08:59)
[2021-06-20] MEDS: Enoxaparin Sodium 40 MG/0.4 ML SYRINGE SC SCH (08:59)
[2021-06-20] MEDS: Chlorhexidine Gluconate 15 ML UDCUP SSP SCH ×2 (09:05→20:10)
[2021-06-20] MEDS: HYDROcodone/Acetaminophen 5/325 mg Tablet PO PRN ×2 (09:06→20:32)
[2021-06-20] MEDS: Multivitamins, Adult 10 ML, TRACE ELEMENT CONCENTRATE 1 ML in D15W-AA 5% with Lytes 2,0... IV SCH (14:22)
[2021-06-20] MEDS: Melatonin 3 MG TAB PO PRN (21:32)
[2021-06-21] MEDS: Meropenem 1 GM in Sodium Chloride 0.9% 100 ML IVPB SCH ×2 (03:43→11:21)
[2021-06-21] MEDS: [UNRECOGNIZED DRUG - REMARK] FS SCH (06:58)
[2021-06-21] MEDS: Promethazine HCl 25 MG in Sodium Chloride 0.9% 50 ML IVPB PRN (07:02)
[2021-06-21] MEDS: Losartan 25 MG TAB PO SCH (08:47)
[2021-06-21] MEDS: Enoxaparin Sodium 40 MG/0.4 ML SYRINGE SC SCH (08:47)
[2021-06-21] MEDS: Pantoprazole 40 MG VIAL IVP SCH (08:47)
[2021-06-21] MEDS: Scopolamine 1.5 mg/72 hour Patch TD SCH (08:47)
[2021-06-21] MEDS: Montelukast Sodium 10 mg Tablet PO SCH (08:47)
[2021-06-21] MEDS: Saccharomyces boulardii 250 MG CAP PO SCH (08:47)
[2021-06-21] MEDS: Pregabalin 75 MG CAP PO SCH (08:47)
[2021-06-21] MEDS: Chlorhexidine Gluconate 15 ML UDCUP SSP SCH (08:56)
[2021-06-21 16:28] VITALS: BP 146/71; TEMP 98.7
== END 2021-06-21 17:21 | disposition home or self-care (01) | DRG 862 ==
LOC: ERS 14:13 → SJJU 18:43
PROVIDERS: ADMIT Surgery; ATTEND Surgery
PROC: 0D9670Z Drainage of Stomach with Drainage Device, Via Natural or Artificial Opening (ICD-10-PCS; 2021-05-30)
PROC: 02HV33Z Insertion of Infusion Device into Superior Vena Cava, Percutaneous Approach (ICD-10-PCS; principal; 2021-05-31)
PROC: B5181ZA Fluoroscopy of Superior Vena Cava using Low Osmolar Contrast, Guidance (ICD-10-PCS; 2021-05-31)
PROC: B548ZZA Ultrasonography of Superior Vena Cava, Guidance (ICD-10-PCS; 2021-05-31)
PROC: 3E0436Z Introduction of Nutritional Substance into Central Vein, Percutaneous Approach (ICD-10-PCS; 2021-05-31)
PROC: 0W9J30Z Drainage of Pelvic Cavity with Drainage Device, Percutaneous Approach (ICD-10-PCS; 2021-06-04)
DX: T81.43XA Infection following a procedure, organ and space surgical site, initial encounter (principal); Z20.822 Contact with and (suspected) exposure to COVID-19; K65.1 Peritoneal abscess; T81.83XA Persistent postprocedural fistula, initial encounter; K63.2 Fistula of intestine; K91.89 Other postprocedural complications and disorders of digestive system; Y83.8 Other surgical procedures as the cause of abnormal reaction of the patient, or of later complication, without mention of misadventure at the time of the procedure; I10 Essential (primary) hypertension; F17.210 Nicotine dependence, cigarettes, uncomplicated; M06.9 Rheumatoid arthritis, unspecified; M54.30 Sciatica, unspecified side; E87.6 Hypokalemia; Z28.21 Immunization not carried out because of patient refusal; Z88.0 Allergy status to penicillin; Z88.2 Allergy status to sulfonamides; Z90.49 Acquired absence of other specified parts of digestive tract; Z90.710 Acquired absence of both cervix and uterus; Z88.8 Allergy status to other drugs, medicaments and biological substances; Z88.1 Allergy status to other antibiotic agents
CPT/HCPCS: 36415; 36416; 36569; 49020; 74019; 74177; 77002; 80048; 80053; 80061; 80202; 81003; 82550; 83605; 83690; 83735; 84100; 85007; 85025; 85027; 85610; 85730; 87040; 87070; 87077; 87086; 87186; 87205; 96365; 96367; 96368; 96375; C1751; C9113; J1644; J1650; J1885; J2185; J2250; J2270; J2405; J2550; J3010; J3370; J3480; J3490; J7030; J7050; Q9967; S0028; U0003; U0005